=== PATIENT | female | born 1975 | race Two or more races ===

== ENCOUNTER 2017-10-13 05:32 | Emergency (ER) | payer OTHER ==
[~2017-10-13] VITALS: Ht 162.6 cm; Wt 72.6 kg
[~2017-10-13 05:32] MED LIST: SYNTHROID50 MCG PO; TOPROL XL25 MG
== END 2017-10-13 15:40 | disposition home or self-care (01) ==
LOC: ER 05:32
DX: S10.83XA Contusion of other specified part of neck, initial encounter (principal); S40.011A Contusion of right shoulder, initial encounter; X58.XXXA Exposure to other specified factors, initial encounter; Y93.89 Activity, other specified; Y92.89 Other specified places as the place of occurrence of the external cause; Y99.8 Other external cause status

== ENCOUNTER 2018-02-13 01:06 | Inpatient (IN) | payer OTHER ==
[~2018-02-13] VITALS: Ht 91.4 cm; Wt 5.0 kg
[2018-02-13] MEDS ORDERED: FERROPLEX (01:13)
[2018-02-13] MEDS ORDERED: [UNRECOGNIZED DRUG - OTHER] (01:14)
[2018-02-14] MEDS ORDERED: PEPCID20 MG PO (09:25)
[2018-02-14] MEDS ORDERED: DOCUSATE SODIU100 MG PO (09:25)
[2018-02-14] MEDS ORDERED: INTEGRA PLUS C1 EACH PO (09:25)
[2018-02-14] MEDS ORDERED: VITAMIN D350000 UNIT PO (09:25)
== END 2018-02-14 11:12 | disposition home or self-care (01) | DRG 812 ==
LOC: ER 01:06 → MEDJ 10:26
PROVIDERS: ADMIT Internal Medicine
PROC: 30233N1 Transfusion of Nonautologous Red Blood Cells into Peripheral Vein, Percutaneous Approach (ICD-10-PCS; principal; 2018-02-13)
DX: D50.8 Other iron deficiency anemias (principal); R42 Dizziness and giddiness; R53.1 Weakness; F41.8 Other specified anxiety disorders

== ENCOUNTER 2018-03-06 23:42 | Emergency (ER) | payer OTHER ==
[~2018-03-06] VITALS: Ht 162.6 cm; Wt 72.6 kg
[~2018-03-06 23:42] MED LIST changes: +DOCUSATE SODIU100 MG PO; +FERROPLEX; +INTEGRA PLUS C1 EACH PO; +PEPCID20 MG PO; +VITAMIN D350000 UNIT PO; +[UNRECOGNIZED DRUG - OTHER]
[2018-03-09] MEDS ORDERED: TYLENOL-CODEINE1 TA1 PO (04:59)
[2018-03-09] MEDS ORDERED: RELPAX20 MG PO (04:59)
[2018-03-09] MEDS ORDERED: SKELAXIN800 MG PO (04:59)
[2018-03-09] MEDS ORDERED: BACTRIM DS TAB1 EACH PO (04:59)
== END 2018-03-07 14:44 | disposition home or self-care (01) ==
LOC: ER 23:42
DX: R51 Headache (principal)

== ENCOUNTER → 2018-03-08 | Emergency (ER) | payer OTHER ==
[~2018-03-08] VITALS: Ht 162.6 cm; Wt 72.6 kg
[~2018-03-08] MED LIST changes: +BACTRIM DS TAB1 EACH PO; +RELPAX20 MG PO; +SKELAXIN800 MG PO; +TYLENOL-CODEINE1 TA1 PO
== END | disposition home or self-care (01) ==
LOC: ER 23:45
DX: S43.491A Other sprain of right shoulder joint, initial encounter (principal); X50.3XXA Overexertion from repetitive movements, initial encounter; Y93.89 Activity, other specified; Y92.89 Other specified places as the place of occurrence of the external cause; Y99.8 Other external cause status; G43.909 Migraine, unspecified, not intractable, without status migrainosus; N39.0 Urinary tract infection, site not specified

== ENCOUNTER 2020-01-10 00:59 | Emergency (ER) | payer OTHER ==
[~2020-01-10] VITALS: Ht 160 cm; Wt 76.2 kg
[2020-01-10] MEDS ORDERED: DICY20TA PO (05:09)
[2020-01-10] MEDS ORDERED: PEPCID20 MG PO (05:09)
[2020-01-10] MEDS ORDERED: CARAFATE1 GM PO (05:09)
[2020-01-10] MEDS ORDERED: TENCON 50-3251 EACH PO (05:09)
[2020-01-10] MEDS ORDERED: PHENERGAN25 MG PO (05:11)
== END 2020-01-10 05:18 | disposition home or self-care (01) ==
LOC: ER 00:59
DX: K66.0 Peritoneal adhesions (postprocedural) (postinfection) (principal); K57.30 Diverticulosis of large intestine without perforation or abscess without bleeding; R10.32 Left lower quadrant pain; Z03.818 Encounter for observation for suspected exposure to other biological agents ruled out

== ENCOUNTER 2020-02-12 15:36 | Emergency (ER) | payer OTHER ==
[~2020-02-12] VITALS: Ht 160 cm; Wt 74.8 kg
[~2020-02-12 15:36] MED LIST changes: +CARAFATE1 GM PO; +DICY20TA PO; +PHENERGAN25 MG PO; +TENCON 50-3251 EACH PO
[2020-02-12] MEDS ORDERED: TOPROL XL50 M1 (15:57)
[2020-02-12] MEDS ORDERED: SYNTHROID75 MCG (15:58)
[2020-02-12] MEDS ORDERED: CARAFATE1 GM PO (22:47)
[2020-02-12] MEDS ORDERED: ZITHROMAX500 MG PO (22:47)
[2020-02-12] MEDS ORDERED: DOLOGEN CAPLET1 EACH PO (22:47)
[2020-02-12] MEDS ORDERED: PROTONIX40 MG PO (22:47)
[2020-02-12] MEDS ORDERED: TUSNEL LIQUID178 ML PO (22:47)
[2020-02-12] MEDS ORDERED: FLUCONAZOLE200 MG PO (22:49)
== END 2020-02-12 22:55 | disposition home or self-care (01) ==
LOC: ER 15:36
DX: R10.84 Generalized abdominal pain (principal); J06.9 Acute upper respiratory infection, unspecified; Z03.818 Encounter for observation for suspected exposure to other biological agents ruled out

== ENCOUNTER 2020-04-28 00:36 | Emergency (ER) | payer OTHER ==
[~2020-04-28] VITALS: Ht 160 cm; Wt 77.1 kg
[~2020-04-28 00:36] MED LIST changes: +DOLOGEN CAPLET1 EACH PO; +FLUCONAZOLE200 MG PO; +PROTONIX40 MG PO; +SYNTHROID75 MCG; +TOPROL XL50 M1; +TUSNEL LIQUID178 ML PO; +ZITHROMAX500 MG PO
[2020-04-28] MEDS ORDERED: TESSALON PERLE100 M1 PO (09:56)
[2020-04-28] MEDS ORDERED: ZITHROMAX TRI-500 MG PO (09:56)
[2020-04-28] MEDS ORDERED: TUSSI PRES-B L480 ML PO (09:56)
[2020-04-28] MEDS ORDERED: NORFLEX100MG PO (09:59)
== END 2020-04-28 09:59 | disposition home or self-care (01) ==
LOC: ER 00:36
DX: K29.70 Gastritis, unspecified, without bleeding (principal); R05 Cough; R51.9 Headache, unspecified; Z03.818 Encounter for observation for suspected exposure to other biological agents ruled out

== ENCOUNTER 2020-05-04 18:25 | Emergency (ER) | payer OTHER ==
[~2020-05-04] VITALS: Ht 162.6 cm; Wt 77.1 kg
[~2020-05-04 18:25] MED LIST changes: +NORFLEX100MG PO; +TESSALON PERLE100 M1 PO; +TUSSI PRES-B L480 ML PO; +ZITHROMAX TRI-500 MG PO
[2020-05-04] MEDS ORDERED: LIPITOR20 MG PO (18:56)
[2020-05-04] MEDS ORDERED: NEURONTIN800 MG PO (18:57)
== END 2020-05-05 01:40 | disposition home or self-care (01) ==
LOC: ER 18:25
DX: K52.9 Noninfective gastroenteritis and colitis, unspecified (principal); Z11.52 Encounter for screening for COVID-19

== ENCOUNTER 2020-05-16 12:01 | Emergency (ER) | payer OTHER ==
[~2020-05-16] VITALS: Ht 162.6 cm; Wt 76.2 kg
[~2020-05-16 12:01] MED LIST changes: +LIPITOR20 MG PO; +NEURONTIN800 MG PO
== END 2020-05-16 16:51 | disposition home or self-care (01) ==
LOC: ER 12:01
DX: S80.01XA Contusion of right knee, initial encounter (principal); W18.39XA Other fall on same level, initial encounter; Y93.89 Activity, other specified; Y92.238 Other place in hospital as the place of occurrence of the external cause; Y99.8 Other external cause status

== ENCOUNTER 2021-02-01 15:16 | Emergency (ER) | payer OTHER ==
[~2021-02-01] VITALS: Ht 160 cm; Wt 67.1 kg
[2021-02-01] MEDS ORDERED: CYCLOSPORINE100 MG PO (19:42)
[2021-02-01] MEDS ORDERED: CYCLOBENZAPRINE10 MG PO (19:43)
== END 2021-02-01 20:11 | disposition home or self-care (01) ==
LOC: ER 15:16
DX: R07.89 Other chest pain (principal); R51.9 Headache, unspecified; R53.1 Weakness; I10 Essential (primary) hypertension; Z20.822 Contact with and (suspected) exposure to COVID-19

== ENCOUNTER 2021-03-17 00:47 | Emergency (ER) | payer OTHER ==
[~2021-03-17] VITALS: Ht 160 cm; Wt 68.0 kg
[~2021-03-17 00:47] MED LIST changes: +CYCLOBENZAPRINE10 MG PO; +CYCLOSPORINE100 MG PO
[2021-03-17] MEDS ORDERED: CLONAZEPAM2 MG (00:58)
[2021-03-17] MEDS ORDERED: ZYNCOF 20-400120 ML PO (04:26)
[2021-03-17] MEDS ORDERED: CEPHALEXIN500 MG PO (04:26)
== END 2021-03-17 04:36 ==
LOC: ER 00:47
DX: R50.9 Fever, unspecified (principal); N39.0 Urinary tract infection, site not specified; Z11.52 Encounter for screening for COVID-19

== ENCOUNTER 2021-11-30 18:09 | Emergency (ER) | payer OTHER ==
[~2021-11-30] VITALS: Ht 160 cm; Wt 77.1 kg
[~2021-11-30 18:09] MED LIST changes: +CEPHALEXIN500 MG PO; +CLONAZEPAM2 MG; +ZYNCOF 20-400120 ML PO
== END 2021-11-30 22:22 | disposition home or self-care (01) ==
LOC: ER 18:09
DX: R19.7 Diarrhea, unspecified (principal); K57.30 Diverticulosis of large intestine without perforation or abscess without bleeding; N32.89 Other specified disorders of bladder; K64.9 Unspecified hemorrhoids; I10 Essential (primary) hypertension; Z88.8 Allergy status to other drugs, medicaments and biological substances

== ENCOUNTER 2022-09-28 18:51 | Emergency (ER) | payer OTHER ==
[~2022-09-28] VITALS: Ht 167.6 cm; Wt 77.1 kg
[2022-09-29] MEDS ORDERED: KETO10TA2 PO ×2 (07:46→07:48)
[2022-09-29] MEDS ORDERED: CEPHALEXIN500 MG PO (07:47)
== END 2022-09-29 07:56 | disposition home or self-care (01) ==
LOC: ER 18:51
DX: K59.01 Slow transit constipation (principal); N39.0 Urinary tract infection, site not specified; Z88.1 Allergy status to other antibiotic agents; Z88.8 Allergy status to other drugs, medicaments and biological substances

== ENCOUNTER 2024-09-19 01:19 | Emergency (ER) | payer OTHER ==
[~2024-09-19] VITALS: Ht 160 cm; Wt 65.8 kg
[~2024-09-19 01:19] MED LIST changes: +KETO10TA2 PO
[2024-09-19] MEDS ORDERED: 0.9 % SODIUM CHLORIDE 1,000 ML IV STA (02:46)
[2024-09-19] MEDS ORDERED: METRONIDAZOLE/SODIUM CHLORIDE 500 MG/100 ML PIGGYBACK IV STA (02:47)
[2024-09-19] MEDS ORDERED: KETOROLAC TROMETHAMINE 30 MG VIAL IV STA (02:47)
[2024-09-19] MEDS ORDERED: TRAMADOL HCL 50 MG TABLET PO STA ×2 (02:48→07:15)
[2024-09-19] MEDS ORDERED: METRONIDAZOLE/SODIUM CHLORIDE 500 MG/100 ML PIGGYBACK IV ONE (03:06)
[2024-09-19] MEDS ORDERED: KETOROLAC TROMETHAMINE 30 MG VIAL ONE (03:06)
[2024-09-19 04:38] LABS: BASO % 0.5 % (0.1-1.2); EOS # 0.20 (0.04-0.54); EOS % 2.1 % (0.7-7.0); LYMPH # 2.07 (1.18-3.74); LYMPH % 21.3 % (19.3-53.1); MEAN PLATELET VOLUME 11.70 fl (9.4-12.4); MONO # 0.92 (0.24-0.82); MONO % 9.5 % (4.7-12.5); NEUT # 6.45 (1.56-6.13); NEUT % 66.3 % (34.0-71.1); RED CELL DISTRIBUTION WIDTH 12.6 % (11.6-14.4)
[2024-09-19 04:57] LABS: BUN CREA RATIO 10.0 (7.0-25.0); CREATININE SERUM 0.86 mg/dL (0.55-1.02); GFR 70.43; GLUCOSE FASTING 77.0 mg/dL (65-100); OSMOLALITY SERUM 275.0 MOSM/KG (275-295)
[2024-09-19 06:33] LABS: URINE APPEARANCE Clear; URINE BILIRRUBIN Negative (NEGATIVE); URINE BLOOD Negative; URINE COLOR Yellow; URINE GLUCOSE Negative (NEGATIVE); URINE KETONE Trace (NEGATIVE); URINE LEUKOCYTE Moderate; URINE NITRATE Negative; URINE PROTEIN Trace (NEGATIVE); URINE UROBILINOGEN 1.0 E.U./dl
[2024-09-19 06:34] LABS: URINE BACTERIA 343.1 uL (0.0-1933); URINE EPITHELIAL CELLS 14.7 uL (0.0-38.8); URINE RBC 50.4 uL (0.0-20.8); URINE WBC 281.0 uL (0.0-23.2)
[2024-09-19 06:55] LABS: URINE CAST 0.00 uL (0.0-1.40)
[2024-09-19 07:54] VITALS: BP 111/71; O2SAT 100
== END 2024-09-19 07:56 | disposition home or self-care (01) ==
LOC: ER 01:19
DX: N76.0 Acute vaginitis (principal); B96.89 Other specified bacterial agents as the cause of diseases classified elsewhere; Z88.8 Allergy status to other drugs, medicaments and biological substances